=== PATIENT | female | born 1955 | race Caucasian/White ===

== ENCOUNTER 2022-12-05 10:54 | Outpatient (CLI) | payer MEDICARE, BC | END 2022-12-05 23:59 | disposition home or self-care (01) | LOC: RAD 10:54 | PROVIDERS: ATTEND Surgery | DX: K44.9 Diaphragmatic hernia without obstruction or gangrene (principal) | CPT/HCPCS: 74220 ==

== ENCOUNTER 2023-01-05 07:11 | Day surgery (SDC) | payer MEDICARE, BC ==
[2022-12-30 12:02] LABS: MEAN CORPUSCULAR HEMOGLOBIN 16.6 PG (27.0-31.0); MEAN CORPUSCULAR HGB CONC 30.1 g/dL (33.0-36.5); MEAN CORPUSCULAR VOLUME 55.3 FL (78-98); MEAN PLATELET VOLUME 8.5 FL (7.4-10.4); PRE OP HEMATOCRIT 27.9 % (35.0-45.0); PRE OP PLATELET COUNT 304 X10'3 (140-440); PRE OP WHITE BLOOD COUNT 5.8 10'3 (4.8-10.8); RED BLOOD COUNT 5.04 X10'6 (4.20-5.60); RED CELL DISTRIBUTION WIDTH 20.5 % (11.5-14.5)
[2022-12-30 12:03] LABS: PRE OP HEMOGLOBIN 8.4 g/dL (12.0-16.0)
[2022-12-30 12:09] LABS: ALBUMIN 3.5 G/DL (3.4-5.0); ALBUMIN/GLOBULIN RATIO 0.9 (1.1-1.5); ALKALINE PHOSPHATASE 129 IU/L (46-116); BLOOD UREA NITROGEN 14 MG/DL (7-18); BUN/CREATININE RATIO 16.9 (10.0-20.0); CALCIUM 9.8 MG/DL (8.5-10.1); CHLORIDE 102 MMOL/L (99-107); CREATININE 0.83 MG/DL (0.40-0.90); PRE OP ALT 27 U/L (30-65); PRE OP ANION GAP 7 (8-16); PRE OP AST 26 U/L (10-37); PRE OP BILIRUB, TOTAL 0.4 MG/DL (0.0-1.0); PRE OP GLUCOSE 122 MG/DL (70-104); PRE OP POTASSIUM 3.8 MMOL/L (3.4-5.1); PRE OP SODIUM 136 MMOL/L (135-145); TOTAL CARBON DIOXIDE 26.8 MMOL/L (24-32); TOTAL PROTEIN 7.2 G/DL (6.4-8.2); eGFR 68 ML/MIN
[2022-12-30 14:13] LABS: ANISOCYTOSIS 3+; MICROCYTOSIS 3+; PLATELET ESTIMATE NORMAL; TOTAL CELLS COUNTED 100
[2022-12-30 14:15] LABS: ELLIPTOCYTES 2+; HYPOCHROMASIA 2+; SCHISTOCYTES FEW
[~2023-01-05] VITALS: Ht 170.2 cm; Wt 84.5 kg
[2023-01-05] VITALS (17 sets, daily range): BP systolic 114–144; BP diastolic 58–69; PULSE 65–94; RESP 13–18; TEMP 97.2; O2SAT 88–100
[~2023-01-05 07:11] MED LIST: ATOR10TA70 PO; CITA40TA17 PO; IBUP-1984 PO; LEVO112T5 PO; PANT40TA54 PO; PSYL0.4C2 PO; TEMA30CA PO; cefazolin 2gm/D5W 100mL 100 ML IV ONE; famotidine 20mg tablet PO ONE; ringers solution, lacted 1,000 ML IV SCH
[2023-01-05] MEDS ORDERED: BUPIVAcaine/PF 2.5mg/ml (0.25%) 10ml vial ONE (08:50)
[2023-01-05] MEDS ORDERED: LIDOcaine 1% 30ml preserv. free vial ONE (08:50)
[2023-01-05] MEDS ORDERED: propofol inj 20 ML IV ONE (09:02)
[2023-01-05] MEDS ORDERED: fentaNYL/PF 50MCG/1 ML 2ML syringe ONE (09:02)
[2023-01-05] MEDS ORDERED: rocuronium 10mg/ml inj IV ONE ×2 (09:02→09:03)
[2023-01-05] MEDS ORDERED: midazolam 1 mg/ML 2ml injection ONE (09:02)
[2023-01-05] MEDS ORDERED: sevoflurane 250ml liquid IH ONE (09:03)
[2023-01-05] MEDS ORDERED: albumin (Human) 5% 250ml 250 ML IV ONE ×2 (10:15)
[2023-01-05] MEDS ORDERED: ePHEDrine 50MG/ML INJ. ONE (10:17)
[2023-01-05] MEDS ORDERED: dexamethasone sod phosphate 4mg/ml inj. ONE (10:17)
[2023-01-05] MEDS ORDERED: HYDROmorphone/PF 0.2 MG/ML SYRINGE IV PRN ×2 (11:00)
[2023-01-05] MEDS ORDERED: ondansetron/PF 4mg/2ml inj ONE (11:00)
[2023-01-05] MEDS ORDERED: ringers solution, lacted 1,000 ML IV SCH (11:00)
[2023-01-05] MEDS ORDERED: meperidine/PF 25mg/ml syringe IV PRN ×3 (11:00)
[2023-01-05] MEDS ORDERED: acetaminophen 1,000mg/100ml IV 100 ML IV PRN (11:00)
[2023-01-05] MEDS ORDERED: labetalol 5mg/ml 20ml inj. IV PRN (11:00)
[2023-01-05] MEDS ORDERED: ondansetron/PF 4mg/2ml inj IV PRN ×2 (11:00→11:25)
[2023-01-05] MEDS ORDERED: sugammadex 200mg/2ml injection IV ONE (11:04)
--- NOTE | 2023-01-05 11:15 | NUR ---
Received from OR via [facility] , accompanied by Anesthesiologist SYDNEE and report given by Anesthesiolgist. PATIENT WITH 20G PIV IN RIGHT HAND RUNNING LR AT 100. DENIES PAIN AT THIS TIME BUT IS C.O OF NAUSEA. MEDICATED UPON ARRIVAL. WILL CONTINUE TO ASSESS AND TREAT. 10L MASK ON WITH 100% SATURATIONS. SR WITH PVCS OCCASIONALLY PRESENT. Addendum: 01/05/23 at 1128 by Zeyad Galindo RN, RN Amended: Links added.
[2023-01-05] MEDS ORDERED: naloxone 0.4 mg/ml inj IV PRN (11:25)
[2023-01-05] MEDS ORDERED: oxyCODONE/APAP 5-325mg tablet PO PRN (11:25)
[2023-01-05] MEDS ORDERED: proCHLORperazine 10 MG/2 ml inj IV ONE (11:40)
--- NOTE | 2023-01-05 12:45 | NUR ---
assumed care of this patient
--- NOTE | 2023-01-05 15:55 | NUR ---
PATIENT MEETS DISCHARGE CRITERIA. VSS. IV DC'D WITH NO ISSUES. PATIENT ABLE TO EAT FULL LIQUID DIET WITH NO ISSUES. DR ANUEL IVAN.
[2023-01-05] MEDS ORDERED: heparin, porcine 5000 units/ml vial SQ SCH (20:00)
== END 2023-01-05 15:55 | disposition home or self-care (01) ==
LOC: PAS 07:11
PROVIDERS: ATTEND Surgery
DX: K44.9 Diaphragmatic hernia without obstruction or gangrene (principal); D64.9 Anemia, unspecified; E78.5 Hyperlipidemia, unspecified; M19.90 Unspecified osteoarthritis, unspecified site; Z88.5 Allergy status to narcotic agent; Z87.891 Personal history of nicotine dependence; Z79.899 Other long term (current) drug therapy; Z98.890 Other specified postprocedural states; Z90.49 Acquired absence of other specified parts of digestive tract; Z86.19 Personal history of other infectious and parasitic diseases
CPT/HCPCS: 36415; 43282; 71045; 80053; 82948; 85025; 86885; 86900; 86901; 93005; C1781; J0131; J0690; J1100; J1170; J2250; J2405; J2704; J3010; J3490; J7030; J7120; P9045; Z7506; Z7508; Z7512; 85007; A4615; A4618